=== PATIENT | male | born 1935 | race Caucasian/White ===

== ENCOUNTER 2016-12-06 10:56 | Emergency (ER) | payer MEDICARE, BC ==
[~2016-12-06] VITALS: Ht 172.7 cm; Wt 88.5 kg
[2016-12-06 10:58] VITALS: BP 138/77; PULSE 69; RESP 16; TEMP 97.7; O2SAT 97
--- NOTE | 2016-12-06 11:19 | PD ---
HPI Chief Complaint: Cold / Flu Symptoms Time Seen by Provider: 11:06 Travel History International Travel<30 days: No Contact w/Intl Traveler<30days: No Traveled to known affect area: No History of Present Illness HPI Patient is an 81-year-old male who presents to emergency room for evaluation of cough. Patient reports that he has not been feeling well for the past 5 days, reports that last night he has had subjective fevers and chills. Reports that he feels congested in the sinuses and reports that he has also had a postnasal drip. Patient denies any cough at this time, reports that he does feel congested in his chest. Patient reports that he had similar symptoms back in the beginning the month (november 14, 2016) and reports that he was admitted for 3- 4 days in the hospital for treatment of pneumonia and was discharged to home with outpatient antibiotics. Patient reports that he did complete full course of antibiotics. Patient concerned that he may have recurrent pneumonia at this time. Patient denies any chest pain or shortness of breath at this time. Patient reports that his flu vaccination is up-to-date. Patient also reports that his has been sick vs has allergies due to the recent high pollen count. PFSH Past Medical History Hx Anticoagulant Therapy: Yes ([facility]) Cardiovascular Problems: Yes ([place], [place]OL) Diabetes: No Past Surgical History Appendectomy: Yes Cardiac Surgery: Yes Coronary Artery Bypass Graft: Yes Social History Alcohol Use: No Tobacco Use: No Substance Use: No Allergies-Medications (Allergen,Severity, Reaction): Coded Allergies: No Known Allergies (Unverified , 12/06/16) Reported Meds & Prescriptions Reported Meds & Active Scripts Active Reported Hydroxyzine HCl 10 Mg Tab 10 Mg PO HS PRN Omeprazole 20 Mg Tab 20 Mg PO DAILY Ditropan (Oxybutynin Chloride) 5 Mg Tab 10 Mg PO DAILY Atorvastatin (Atorvastatin Calcium) 40 Mg Tab 40 Mg PO DAILY Aspirin 81 Mg Tabdr 81 Mg PO DAILY Probiotic (Lactobacillus Acidophilus) 1 Cap Cap 1 Cap PO BID Tamsulosin (Tamsulosin HCl) 0.4 Mg Cap 0.4 Mg PO BID Vitamin D-1000 (Cholecalciferol) 1,000 Unit Tab 1,000 Units PO DAILY Review of Systems General / Constitutional: Positive: Fever, Chills Eyes: No: Visual changes HENT: Positive: Congestion, No: Headaches Cardiovascular: No: Chest Pain or Discomfort Respiratory: No: Cough, Shortness of Breath Gastrointestinal: No: Abdominal Pain Genitourinary: No: Dysuria Musculoskeletal: No: Pain Skin: No Rash Neurologic: No: Weakness Psychiatric: No: Depression Endocrine: No: Polydipsia Hematologic/Lymphatic: No: Easy Bruising Physical Exam Narrative GENERAL: NAD, nontoxic SKIN: Warm and dry. HEAD: Atraumatic. Normocephalic. EYES: Pupils equal and round. No injection or drainage. ENT: No nasal bleeding or discharge. Mucous membranes pink and moist. NECK: Trachea midline. No JVD. CARDIOVASCULAR: Regular rate and rhythm. No murmur appreciated. RESPIRATORY: No accessory muscle use. Clear to auscultation. Breath sounds equal bilaterally. GASTROINTESTINAL: Abdomen soft, non-tender, nondistended. Hepatic and splenic margins not palpable. MUSCULOSKELETAL: No obvious deformities. No clubbing. No cyanosis. No edema. NEUROLOGICAL: Awake and alert. Normal speech. PSYCHIATRIC: Appropriate mood and affect; insight and judgment normal. Data Data Last Documented VS Vital Signs Date Time Temp Pulse Resp B/P Pulse Ox O2 Delivery O2 Flow Rate FiO2 12/06/16 12:02 65 16 166/85 97 12/06/16 11:45 Room Air 12/06/16 10:58 97.7 Orders Electrocardiogram (12/06/16 11:13) Complete Blood Count With Diff (12/06/16 11:13) Comprehensive Metabolic Panel (12/06/16 11:13) Influenzae A/B Antigen (12/06/16 11:13) Urinalysis - C+S If Indicated (12/06/16 11:13) Blood Culture (12/06/16 11:13) Chest, Single Ap (12/06/16 11:13) Ecg Monitoring (12/06/16 11:13) Iv Access Insert/Monitor (12/06/16 11:13) Oximetry (12/06/16 11:13) Labs Laboratory Tests Test 12/06/16 12/06/16 11:45 12:07 White Blood Count 7.4 TH/MM3 Red Blood Count 4.34 MIL/MM3 Hemoglobin 13.4 GM/DL Hematocrit 38.8 % Mean Corpuscular Volume 89.4 FL Mean Corpuscular Hemoglobin 30.9 PG Mean Corpuscular Hemoglobin 34.5 % Concent Red Cell Distribution Width 13.6 % Platelet Count 166 TH/MM3 Mean Platelet Volume 8.7 FL Neutrophils (%) (Auto) 55.2 % Lymphocytes (%) (Auto) 28.9 % Monocytes (%) (Auto) 11.2 % Eosinophils (%) (Auto) 4.0 % Basophils (%) (Auto) 0.7 % Neutrophils # (Auto) 4.0 TH/MM3 Lymphocytes # (Auto) 2.2 TH/MM3 Monocytes # (Auto) 0.8 TH/MM3 Eosinophils # (Auto) 0.3 TH/MM3 Basophils # (Auto) 0.1 TH/MM3 CBC Comment DIFF FINAL Differential Comment Sodium Level 139 MEQ/L Potassium Level 4.0 MEQ/L Chloride Level 104 MEQ/L Carbon Dioxide Level 28.2 MEQ/L Anion Gap 7 MEQ/L Blood Urea Nitrogen 11 MG/DL Creatinine 0.81 MG/DL Estimat Glomerular Filtration 92 ML/MIN Rate Random Glucose 118 MG/DL Calcium Level 8.7 MG/DL Total Bilirubin 0.4 MG/DL Aspartate Amino Transf 17 U/L (AST/SGOT) Alanine Aminotransferase 21 U/L (ALT/SGPT) Alkaline Phosphatase 32 U/L Total Protein 7.3 GM/DL Albumin 3.5 GM/DL Urine Collection Type CLEAN CATCH Urine Color STRAW Urine Turbidity CLEAR Urine pH 6.5 Urine Specific [place] 1.006 Urine Protein NEG mg/dL Urine Glucose (UA) NEG mg/dL Urine Ketones NEG mg/dL Urine Occult Blood NEG Urine Nitrite NEG Urine Bilirubin NEG Urine Leukocyte Esterase NEG Urine Squamous Epithelial 0-5 /hpf Cells Urine Amorphous Sediment FEW Microscopic Urinalysis Comment CULT NOT INDICATED Urine Collection Time 1205 MDM Medical Decision Making Medical Screen Exam Complete: Yes Emergency Medical Condition: Yes Interpretation(s) EKG at 1150: NSR at 70bpm, qt/qtc: 414/431, no acute changes Vital Signs Date Time Temp Pulse Resp B/P Pulse Ox O2 Delivery O2 Flow Rate FiO2 12/06/16 10:58 97.7 69 16 138/77 97 Differential Diagnosis ACS, pneumonia, influenza, viral syndrome, sinusitis, strep pharyngitis Narrative Course Patient is an 81-year-old male who presents to emergency room with complaints of possible pneumonia. Patient reports that he has not been feeling well for the past 5 days, reports that he has had increased sinus congestion, postnasal drip with no cough. Patient reports that he has had subjective fevers since last night, reports that symptoms are very similar to when he was diagnosed and admitted to the hospital for pneumonia in November 11, 2016. Patient reports that he thinks he has pneumonia at this time, would like this treated earlier rather than being admitted to the hospital for treatment of pneumonia Vital Signs Date Time Temp Pulse Resp B/P Pulse Ox O2 Delivery O2 Flow Rate FiO2 12/06/16 10:58 97.7 69 16 138/77 97 Overall, patient's physical exam is benign. Given that he was recently admitted to the hospital for treatment of pneumonia, blood cultures ordered. Labs as well as x-ray of the chest ordered as well. We'll check for influenza. Microbiology Date/Time Procedure Status Source Growth 12/06/16 11:45 Aerobic Blood Culture Received Blood Peripheral Pending 12/06/16 11:45 Anaerobic Blood Culture Received Blood Peripheral Pending 12/06/16 11:50 Aerobic Blood Culture Received Blood Peripheral Pending 12/06/16 11:50 Anaerobic Blood Culture Received Blood Peripheral Pending 12/06/16 12:07 Influenza Types A,B Antigen (STEPH[facility]) - Final Complete Nasal Washing Positive For Flu B Antigen CBC & BMP Diagram 12/06/16 11:45 Last Impressions Chest X-Ray 12/06/16 1113 Signed Impressions: Service Date/Time: Tuesday, December 06, 2016 11:15 - CONCLUSION: Hyperaeration indicating possible emphysema. No acute cardiopulmonary disease identified. Cortez Gupta MD Patient reevaluated, patient feeling much better at this time. I did review all labs and all studies with patient in detail. Patient reports that he has been having symptoms for the past 5 days, patient does have positive for influenza B. Patient is not a candidate for Tamiflu at this time. Encouraged patient to have rest, encourage increased fluids as well as Tylenol or Motrin for fever. Patient will follow up with cultures from today. Patient will also follow-up with his primary care doctor, he will return to emergency room as needed. Diagnosis Primary Impression: Influenza B Patient Instructions: General Instructions Additional Instructions: Please follow-up with your primary care doctor Please drink plenty of fluids Please take acetaminophen or Motrin for fever Please follow-up with cultures from today Disposition: 01 DISCHARGE HOME Condition: Stable Ashley Hansenfer Tommie MENDEZ Dec 06, 2016 11:19
[2016-12-06 11:36] VITALS: BP 153/79; PULSE 67; RESP 16; O2SAT 96
[2016-12-06 11:45] VITALS: RESP 16; O2SAT 97
--- NOTE | 2016-12-06 11:55 | RADHPO ---
EXAM DATE/TIME: 12/06/2016 11:15 [facility] COMPARISON: No previous studies available for comparison. INDICATIONS : Patient states cough. MEDICAL HISTORY : None. SURGICAL HISTORY : None. ENCOUNTER: Initial ACUITY: 3 days PAIN SCORE: 10 LOCATION: Bilateral chest FINDINGS: Single AP view of the chest. Flattening of the hemidiaphragms suggesting hyperaeration and possible e mphysema. Median sternotomy wires. The lungs are clear. Cardiomediastinal silhouette within normal li mits. No evidence of pleural effusion or pneumothorax. CONCLUSION: Hyperaeration indicating possible emphysema. No acute cardiopulmonary disease iden tified. Cortez Gupta MD on December 06, 2016 at 11:52 Board Certified Radiologist. This report was verified electronically.
[2016-12-06 11:59] LABS: BASOPHIL # 0.1 TH/MM3 (0-0.2); BASOPHIL % 0.7 % (0.0-2.0); EOSINOPHIL # 0.3 TH/MM3 (0-0.4); HEMATOCRIT 38.8 % (39.0-51.0); HEMO FLAGS DIFF FINAL; LYMPH % 28.9 % (9.0-44.0); LYMPHOCYTE # 2.2 TH/MM3 (1.0-4.8); MEAN CELL VOLUME 89.4 FL (80.0-100.0); MEAN CORPUSCULAR HEMOGLOBIN 30.9 PG (27.0-34.0); MEAN CORPUSCULAR HGB CONC 34.5 % (32.0-36.0); MONO % 11.2 % (0.0-8.0); NEUT % 55.2 % (16.0-70.0); PLATELET COUNT 166 TH/MM3 (150-450); RED BLOOD COUNT 4.34 MIL/MM3 (4.50-5.90); RED CELL DISTRIBUTION WIDTH 13.6 % (11.6-17.2); WHITE BLOOD COUNT 7.4 TH/MM3 (4.0-11.0)
[2016-12-06 12:02] VITALS: BP 166/85; PULSE 65; RESP 16; O2SAT 97
[2016-12-06 12:08] LABS: CHLORIDE 104 MEQ/L (98-107); SODIUM (NA) 139 MEQ/L (136-145)
[2016-12-06 12:11] LABS: ANION GAP 7 MEQ/L (5-15); BICARBONATE 28.2 MEQ/L (21.0-32.0)
[2016-12-06 12:12] LABS: BLOOD UREA NITROGEN 11 MG/DL (7-18)
[2016-12-06 12:13] LABS: BLOOD, URINE NEG (NEG); GLUCOSE,URINE NEG (NEG); KETONE, URINE NEG (NEG); NITRITE,URINE NEG (NEG); PH, URINE 6.5 (5.0-8.5)
[2016-12-06 12:14] LABS: ALT (GPT) 21 U/L (12-78)
[2016-12-06 12:15] LABS: AST (GOT) 17 U/L (15-37); GLOMERULAR FILTRATION RATE 92 ML/MIN (>89)
[2016-12-06 12:16] LABS: TOTAL BILIRUBIN ADULT 0.4 MG/DL (0.2-1.0)
[2016-12-06 12:17] LABS: ALKALINE PHOSPHATASE 32 U/L (45-117)
[2016-12-06 12:26] LABS: METHOD OF COLLECTION CLEAN CATCH; URINE COLOR STRAW (YELLW/STRAW)
[2016-12-06 12:27] LABS: COMMENT (UR) CULT NOT INDICATED; CULTURE IF INDICATED CULT NOT INDICATED; SQUAMOUS EPITHELIAL CELL URINE 0-5 /hpf (0-5)
[2016-12-06] MEDS ORDERED: LACTCAP8 PO (12:27)
[2016-12-06] MEDS ORDERED: TAMS0.4C4 PO (12:27)
[2016-12-06] MEDS ORDERED: ASPI1TAB69 PO (12:27)
[2016-12-06] MEDS ORDERED: OMEP20TA PO (12:27)
[2016-12-06] MEDS ORDERED: VITA1000 PO (12:27)
[2016-12-06] MEDS ORDERED: HYDR-755 PO (12:27)
[2016-12-06] MEDS ORDERED: ATOR40TA16 PO (12:27)
[2016-12-06] MEDS ORDERED: OXYB5TAB10 PO (12:27)
[2016-12-06 13:04] VITALS: BP 143/79
--- NOTE | 2016-12-06 22:41 | EKG ---
Date Performed: 12/06/2016 Time Performed: 11:50:10 PTAGE: 81 years EKG: Sinus rhythm Inferior infarct - age undetermined Abnormal ECG NO PREVIOUS TRACING DOCTOR: Maxwell De Jesus Interpretating Date/Time 12/06/2016 22:40:15
== END 2016-12-06 13:06 | disposition home or self-care (01) ==
LOC: PHED 10:56
DX: J10.89 Influenza due to other identified influenza virus with other manifestations (principal); Z79.82 Long term (current) use of aspirin; R94.31 Abnormal electrocardiogram [ECG] [EKG]
CPT/HCPCS: 71010; 80053; 81001; 85025; 87040; 87804; 93005